=== PATIENT | male | born 1940 | race Two or more races ===

== ENCOUNTER 2017-04-21 06:28 | Day surgery (SDC) | payer MEDICARE ==
--- NOTE | 2017-04-17 15:32 | Pre-Procedure Note/Attestation ---
Pre-Procedure Note/Attestation Complete Prior to Procedure Planned Procedure: right Procedure Narrative: 1. CATARACT EXTRACTION WITH PHACO AND PC IOL IMPLANTATION, RIGHT EYE. 2.LIMBAL RELAXING INCISION,RIGHT EYE. 3.MALYUGIN RING INSERTION, RIGHT EYE FOR FLOPPY IRIS SYNDROME. 4.COMPLEX CATARACT , RIGHT EYE Indications for Procedure Pre-Operative Diagnosis: 1. CATARACT ,RIGHT EYE. 2.ASTIGMATISM, RIGHT EYE. 3. FLOPPY IRIS SYNDROME,RIGHT EYE 4. COMPLEX CATARACT , RIGHT EYE. Attestation I attest that I discussed the nature of the procedure; its benefits; risks and complications; and alternatives (and the risks and benefits of such alternatives ), prior to the procedure, with the patient (or the patient's legal sales service representative). I attest that, if there was a reasonable possibility of needing a blood transfusion, the patient (or the patient's legal sales service representative) was given the [facility] standardized written summary, pursuant to the [place] Blood Safety Act ([place] Health and Safety Code # 1645, as amended). I attest that I re-evaluated the patient just prior to the surgery and that there has been no change in the patient's H&P, except as documented below: DONNIE JACKSON Apr 17, 2017 15:32
[~2017-04-21] VITALS: Ht 175.3 cm; Wt 77.6 kg
[2017-04-21] VITALS (9 sets, daily range): BP systolic 110–135; BP diastolic 58–74
[~2017-04-21 06:28] MED LIST: acetaZOLAMIDE 125mg tab ORAL ONE
[2017-04-21] MEDS ORDERED: Ketorolac Tromethamine Opth Soln ONE (06:42)
[2017-04-21] MEDS ORDERED: Tropicamide 1% Opth Soln ONE (06:42)
[2017-04-21] MEDS ORDERED: Akten 3.5% 1ml Btl ONE (06:42)
[2017-04-21] MEDS ORDERED: Phenylephrine 10% Opth Soln 5ml ONE (06:42)
[2017-04-21] MEDS ORDERED: Vigamox Opth Soln ONE (06:42)
[2017-04-21] MEDS: Phenylephrine 10% Opth Soln 5ml RIGHT EYE SCH ×3 (06:55→07:08)
[2017-04-21] MEDS: Ketorolac Tromethamine Opth Soln RIGHT EYE SCH ×3 (06:56→07:08)
[2017-04-21] MEDS: Akten 3.5% 1ml Btl RIGHT EYE SCH ×3 (06:56→07:08)
[2017-04-21] MEDS: Vigamox Opth Soln RIGHT EYE SCH ×3 (06:56→07:08)
[2017-04-21] MEDS: Tropicamide 1% Opth Soln RIGHT EYE SCH ×3 (06:56→07:08)
[2017-04-21] MEDS ORDERED: PLAVIX75 MG ORAL (07:07)
[2017-04-21] MEDS ORDERED: SOTALOL80 M1 ORAL (07:07)
[2017-04-21] MEDS ORDERED: LEVOTHYROXINE50 MCG ORAL (07:07)
[2017-04-21] MEDS ORDERED: ISOSORBIDE MON120 M1 PO (07:07)
[2017-04-21] MEDS ORDERED: CLOPIDOGREL75 MG ORAL (07:07)
[2017-04-21] MEDS ORDERED: METOPROLOL SUCC25 MG ORAL (07:07)
[2017-04-21] MEDS ORDERED: Sterile Water Irrig 1000ml IRRIG ONE (08:00)
[2017-04-21] MEDS ORDERED: LR 1000ml ONE (08:00)
[2017-04-21] MEDS ORDERED: Midazolam 2mg/2ml Inj ONE (08:00)
[2017-04-21] MEDS ORDERED: NS Irrig 1000ml ONE (08:00)
[2017-04-21] MEDS ORDERED: Propofol 200mg/20ml IV ONE (08:00)
[2017-04-21] MEDS ORDERED: fentaNYL 100 mcg/2 mL IV ONE (08:00)
[2017-04-21] MEDS ORDERED: Dexamethasone 4mg/ml vial ONE (08:07)
[2017-04-21] MEDS ORDERED: Povidone-Iodine 5% opth solution ONE (08:07)
[2017-04-21] MEDS ORDERED: BSS 500ml btl ONE (08:07)
[2017-04-21] MEDS ORDERED: Lidocaine 1% MPF 10mg/ml 5ml ONE (08:07)
[2017-04-21] MEDS ORDERED: BSS 15ml BTL ONE (08:08)
[2017-04-21] MEDS ORDERED: Sodium Hyaluronate 10 mg/ml 0.85ml ONE ×2 (08:08→09:03)
[2017-04-21] MEDS ORDERED: EPINEPHrine 1mg/1ml Amp ONE (08:08)
[2017-04-21] MEDS ORDERED: LR 1000ml 1,000 ML IVLG SCH (08:39)
--- NOTE | 2017-04-21 08:39 | Anethesia Preoperative Eval ---
Anesthesia Pre-op PMH/ROS General Date of Evaluation: Apr 21, 2017 Time of Evaluation: 08:12 Anesthesiologist: Joe ASA Score: ASA 3 Mallampati Score Class I : Soft palate, uvula, fauces, pillars visible Class II: Soft palate, uvula, fauces visible Class III: Soft palate, base of uvula visible Class IV: Only hard plate visible Mallampati Classification: Class II Surgeon: Dona Diagnosis: L eye cataract Surgical Procedure: L eye cataract extraction Anesthesia History: none Social History: smoking - h/o Family History: no anesthesia problems Allergies: Coded Allergies: No Known Allergies (Unverified , 04/17/17) Medications: see eMAR Past Medical History Cardiovascular: Reports: HTN, CAD - s/p CABG no recent CP, Denies: [place], valve dz, arrhythmia, other Pulmonary: Denies: asthma, COPD, AMINATA, other Gastrointestinal/Genitourinary: Reports: GERD - mild, Denies: CRI, ESRD, other Neurologic/Psychiatric: Denies: dementia, CVA, depression/anxiety, TIA, other Endocrine: Denies: DM, hypothyroidism, steroids, other HEENT: Reports: cataract (L), cataract (R), Denies: glaucoma, [place] (L), [place] (R), other Hematology/Immune: Denies: anemia, DVT, bleeding disorder, other Musculoskeletal/Integumentary: Denies: OA, RA, DJD, DDD, edema, other PMH Narrative: as above PSxH Narrative: CABG Anesthesia Pre-op Phys. Exam Physician Exam Last Vital Signs Date Time Temp Pulse Resp B/P (MAP) Pulse Ox O2 Delivery O2 Flow Rate FiO2 04/21/17 06:58 97.4 54 18 128/65 96 Room Air Constitutional: NAD Neurologic: CN 2-12 intact Cardiovascular: RRR, no M/R/G Respiratory: CTA Gastrointestinal: S/NT/ND Airway Exam Mallampati Score: Class II MO: limited Neck: stiff ROM: limited Teeth: missing Dentures: upper, lower Anesthesia Pre-op A/P Labs see chart Studies Pre-op Studies: EKG - SR Risk Assessment & Plan Assessment: ASA 3 Plan: MAC Status Change Before Surgery: No Pre-Antibiotics Drug: none СЕРГЕЙ GROSS M.D. Apr 21, 2017 08:39
[2017-04-21] MEDS ORDERED: fentaNYL 100 mcg/2 mL IV PRN (08:45)
[2017-04-21] MEDS ORDERED: DiphenhydrAMINE 50mg/ml Inj IVP PRN (08:45)
--- NOTE | 2017-04-21 09:07 | Discharge Summary ---
Discharge Summary Discharge Summary Discharge Summary DATE OF ADMISSION: 04/21/2017 DATE OF DISCHARGE: 04/21/2017 REASON FOR HOSPITALIZATION:1- cataract complex, right eye 2- Floppy iris syndrome, right eye SURGERY PERFORMED: 1- Cataract extraction with phaco and PC IOL implantation, right eye CONDITION IN THE HOSPITAL:The patient tolerated the surgery without complications. DISCHARGE CONDITION: The patient was stable at discharge. DISCHARGE MEDICATIONS: 1. Vigamox eye drops one drop q.i.d, right eye 2. Prednisolone one drop q.i.d, right eye 3. Acular, one drop q4h, right eye POSTOPERATIVE ORDERS: The patient has to rest at home. No bending, No lifting, No watching Television tonight. POSTOPERATIVE FOLLOW UP: The patient will be followed in my office tomorrow morning at 7 o'clock. DONNIE JACKSON Apr 21, 2017 09:07
--- NOTE | 2017-04-21 09:11 | Brief Operative Note ---
Immediate Post Operative Note Operative Note Chief Complaint: Blurry vision, difficulty driving and readin, right eye Pre-op Diagnosis: 1. CATARACT ,RIGHT EYE. 2.ASTIGMATISM, RIGHT EYE. 3. FLOPPY IRIS SYNDROME,RIGHT EYE 4. COMPLEX CATARACT , RIGHT EYE. Post-op Diagnosis: 1- Cataract extraction with phaco and PC IOL implantation, right eye 2- Malyugin ring insertion for treatment floppy iris syndrome, right eye 3- Complex cataract, right eye Surgeon: Donnie Carcamo MD. Mule Tender: None Additional Surgeons: None Anesthesiologist: Dr. Diaz Anesthesia: MAC Specimen: none Complications: none Condition: stable Fluids: 500 ml Estimated Blood Loss: none Drains: none Implant(s) used?: Yes - Monofocal PC iOL implanted in the right eye without complication DONNIE CARCAMO Apr 21, 2017 09:11
--- NOTE | 2017-04-21 09:40 | Immediate Post-Op Evaluation ---
Immediate Post-Op Evalulation Immediate Post-Op Evalulation Procedure: R eye cataract extraction with IOL Date of Evaluation: Apr 21, 2017 Time of Evaluation: 08:10 IV Fluids: 400 Blood Products: none Estimated Blood Loss: none Urinary Output: none Blood Pressure Systolic: 128 Blood Pressure Diastolic: 73 Pulse Rate: 58 Respiratory Rate: 20 O2 Sat by Pulse Oximetry: 99 Temperature (Fahrenheit): 97.5 Pain Score (1-10): 2 Nausea: No Vomiting: No Complications none Patient Status: awake, patent, none Hydration Status: adequate СЕРГЕЙ GROSS M.D. Apr 21, 2017 09:40
--- NOTE | 2017-04-21 11:21 | 48 Hour Post Anesthesia Eval ---
Post Anesthesia Evaluation Procedure: R eye cataract extraction with IOL Date of Evaluation: Apr 21, 2017 Time of Evaluation: 11:20 Blood Pressure Systolic: 132 0: 58 Pulse Rate: 72 Respiratory Rate: 18 Temperature (Fahrenheit): 97.6 O2 Sat by Pulse Oximetry: 98 Airway: patent Nausea: No Vomiting: No Pain Intensity: 1 Hydration Status: adequate Cardiopulmonary Status: stable Mental Status/LOC: patient returned to baseline Follow-up Care/Observations: n/a Post-Anesthesia Complications: none Follow-up care needed: ready to discharge СЕРГЕЙ GROSS M.D. Apr 21, 2017 11:21
--- NOTE | 2017-04-21 22:15 | Operative Note - Dictated ---
DATE OF OPERATION: 04/21/2017 FACILITY: [facility]. SURGEON: Bartolome Carcamo M.D. PROPELLANT ASSEMBLER: None. ANESTHESIOLOGIST: Leeroy Diaz M.D. ANESTHESIA: Monitored anesthesia care (MAC). PREOPERATIVE DIAGNOSES: 1. Cataract, right eye. 2. Floppy iris syndrome. 3. Complex cataract. POSTOPERATIVE DIAGNOSES: 1. Cataract, right eye. 2. Floppy iris syndrome. 3. Complex cataract. SURGERY PERFORMED: 1. Cataract extraction with phacoemulsification and posterior chamber intraocular lens implantation in the right eye. 2. Insertion of Malyugin ring to treat floppy iris syndrome. 3. Complex cataract treatment. INDICATIONS FOR SURGERY: The patient is a 77-year-old gentleman with history of hypertension, hyperlipidemia, osteoarthritis, chest pain, fatty liver, dyslipidemia, carotid artery stenosis, heart murmur, vitamin D deficiency, lower extremity pain, and TIA. He is taking medications including metoprolol, atorvastatin, triamcinolone, tamsulosin hydrochloride 0.5 mg oral capsule, sotalol 80 mg oral, potassium chloride, isosorbide, pantoprazole solution oral, vitamin D 2000 units, cyanocobalamin, and fish oil. He is complaining of blurred vision in the right eye. On examination of the right eye, the cornea is clear. Anterior chamber is clear and quiet, appeared shallow. Pupillary reflex is normal. There is RAPD. There is 4+ nuclear sclerosis and 2+ cortical cataract in the right eye. On examination of the macula, macula, optic disc, and periphery retina are within normal limits. To improve his vision in the right eye, the cataract has to be removed and posterior chamber intraocular lens has to be implanted. INFORMED CONSENT: The nature of the surgery, risks, benefits, alternatives, and potential complications were all explained in detail to the patient in his language, Farsi. The potential complications including, but not limited to infection, bleeding, posterior capsular rupture, lens subluxation, flat anterior chamber, iris prolapse, uveitis, corneal edema, macular edema, endophthalmitis, retinal detachment, loss of vision, and even loss of the eye were all explained in detail to the patient. The patient voiced understanding and accepted all the complications. The alternatives including accommodating lenses, multifocal lenses, toric lens, and limbal relaxing incision for treatment of astigmatism were all explained to the patient, who voiced understanding. The patient decided to have cataract surgery with limbal relaxing incision (LRI) for treatment of astigmatism. Then, he signed the consent form, which is in the chart. DESCRIPTION OF SURGERY AND FINDINGS: Following that, the patient was taken to the operating room in a stable condition. Lidocaine gel Akten 3.5% were applied to the conjunctiva of the right eye. IV sedation was given by the anesthesiologist, Dr. Diaz. After adequate anesthesia and sedation had been achieved, the right eye was prepped and draped in a sterile fashion for intraocular surgery. Before the patient was taken to the operation room, the cornea was marked at 180 and 90 meridian. In the operation room, using a corneal marker and marking pen, the steep meridian of the cornea was marked. Following that, using a cipriano knife with 600 blade, 2 parallel incisions were placed on the steep meridian of the cornea. Following that, using a Super Sharp knife, a clear corneal side port was created. A 1% lidocaine without preservative (MPF) was injected into the anterior chamber. Following that, viscoelastic agent Healon was injected into the anterior chamber. Following that, using a 2.8 mm keratome, clear corneal temporal keratotomy was performed. Viscoelastic agent was injected into the anterior chamber again. Following that, a Malyugin ring was inserted into the anterior chamber. The coils of the Malyugin ring were engaged with the sphincter of the pupil. A cipriano shaped space was created for safe phacoemulsification. Following that, anterior capsulotomy was performed in the fashion of capsulorrhexis beautifully. Following that, the viscoelastic agent was removed from the anterior chamber. Following that, with balanced salt solution, hydrodissection and hydrodelineation were performed and the nucleus was freed. Following that, clear fresh new viscoelastic agent Healon was injected into the anterior chamber to protect the endothelium of the cornea. Following that, using phacoemulsification machine in the fashion of horizontal chop, the nucleus was removed in toto. Following that, using irrigation aspiration unit, the cortical material was removed from the capsular bag and the capsular bag was polished. Following that, the capsular bag was filled with viscoelastic agent Healon. Following that, a +16.5 diopter, [id number] foldable PCIOL with serial number [id number] was inserted into the capsular bag. Using a Sinskey hook, the lens was manipulated within the proper position. Following that, the viscoelastic agent was removed from the anterior posterior part of the lens. Following that, the anterior chamber was filled with balanced salt solution and the wound was hydrated with balanced salt solution. The wound was checked for leakage. There was no leakage. Vigamox eye drops were applied to the conjunctiva of the right eye. The patient tolerated the surgery without complications. At the end of the surgery, the eye was patched with a clear sterile fenestrated shield. Following that, the patient was transferred to the recovery room. In the recovery room, 125 mg Diamox was given by mouth stat. Postoperative orders and directions were given to the patient. The patient will be discharged home upon stabilization. The patient will be followed in my office tomorrow morning at 7 o'clock. Bartolome Carcamo M.D. DR: Yesica JOB#: [id number] CC:
== END 2017-04-21 10:15 | disposition home or self-care (01) ==
LOC: SUR 06:28
DX: H26.9 Unspecified cataract (principal); H21.81 Floppy iris syndrome; I10 Essential (primary) hypertension; E78.5 Hyperlipidemia, unspecified; M19.90 Unspecified osteoarthritis, unspecified site; H52.201 Unspecified astigmatism, right eye; Z87.891 Personal history of nicotine dependence; I25.118 Atherosclerotic heart disease of native coronary artery with other forms of angina pectoris; K21.9 Gastro-esophageal reflux disease without esophagitis; Z95.1 Presence of aortocoronary bypass graft; Z86.73 Personal history of transient ischemic attack (TIA), and cerebral infarction without residual deficits
CPT/HCPCS: 66982; J0171; J1100; J2250; J2704; J3010; J7120; V2632; 94003; 94150

== ENCOUNTER 2017-06-23 08:14 | Day surgery (SDC) | payer MEDICARE ==
--- NOTE | 2017-06-18 15:03 | Pre-Procedure Note/Attestation ---
Pre-Procedure Note/Attestation Complete Prior to Procedure Planned Procedure: left Procedure Narrative: 1. CATARACT EXTRACTION WITH PHACO AND PC IOL IMPLANTATION, LEFT EYE. 2.LIMBAL RELAXING INCISION,LEFT EYE. 3.MALYUGIN RING INSERTION, LEFT EYE FOR FLOPPY IRIS SYNDROME. 4.COMPLEX CATARACT , LEFT EYE Indications for Procedure Pre-Operative Diagnosis: 1. CATARACT ,LEFT EYE. 2.ASTIGMATISM, LEFT EYE. 3. FLOPPY IRIS SYNDROME, LEFT EYE 4. COMPLEX CATARACT , LEFT EYE. Attestation I attest that I discussed the nature of the procedure; its benefits; risks and complications; and alternatives (and the risks and benefits of such alternatives ), prior to the procedure, with the patient (or the patient's legal artist representative). I attest that, if there was a reasonable possibility of needing a blood transfusion, the patient (or the patient's legal artist representative) was given the [facility] standardized written summary, pursuant to the [place] Blood Safety Act ([place] Health and Safety Code # 1645, as amended). I attest that I re-evaluated the patient just prior to the surgery and that there has been no change in the patient's H&P, except as documented below: DONNIE JACKSON Jun 18, 2017 15:03
[~2017-06-23] VITALS: Ht 175.3 cm; Wt 78.0 kg
--- NOTE | 2017-06-23 07:09 | Anethesia Preoperative Eval ---
Anesthesia Pre-op PMH/ROS General Date of Evaluation: Jun 23, 2017 Anesthesiologist: Donn ASA Score: ASA 3 Mallampati Score Class I : Soft palate, uvula, fauces, pillars visible Class II: Soft palate, uvula, fauces visible Class III: Soft palate, base of uvula visible Class IV: Only hard plate visible Mallampati Classification: Class II Surgeon: Dona Diagnosis: Left cataract Surgical Procedure: Left cataract extraction with IOL Anesthesia History: none Family History: no anesthesia problems Allergies: Coded Allergies: No Known Allergies (Unverified , 04/17/17) Medications: see eMAR Past Medical History Cardiovascular: Reports: HTN, CAD, other - HLD, Denies: [place], valve dz, arrhythmia Pulmonary: Denies: asthma, COPD, AMINATA, other Gastrointestinal/Genitourinary: Denies: GERD, CRI, ESRD, other Neurologic/Psychiatric: Denies: dementia, CVA, depression/anxiety, TIA, other Endocrine: Reports: hypothyroidism, Denies: DM, steroids, other HEENT: Reports: cataract (L), Denies: cataract (R), glaucoma, [place] (L), [place] (R), other Hematology/Immune: Reports: anemia - chronic, Denies: DVT, bleeding disorder, other Musculoskeletal/Integumentary: Denies: OA, RA, DJD, DDD, edema, other PSxH Narrative: right cataract, CABG Anesthesia Pre-op Phys. Exam Physician Exam see chart Constitutional: NAD Cardiovascular: RRR Respiratory: CTA Airway Exam Mallampati Score: Class II MO: full ROM: full Dentures: upper, lower Anesthesia Pre-op A/P Labs see chart Studies Pre-op Studies: EKG - sr Risk Assessment & Plan Assessment: ASA III Plan: MAC Status Change Before Surgery: No Pre-Antibiotics Drug: N/A WYATT NEAL M.D. Jun 23, 2017 07:09
[~2017-06-23 08:14] MED LIST changes: +CLOPIDOGREL75 MG ORAL; +ISOSORBIDE MON120 M1 PO; +LEVOTHYROXINE50 MCG ORAL; +METOPROLOL SUCC25 MG ORAL; +PLAVIX75 MG ORAL; +SOTALOL80 M1 ORAL
[2017-06-23] MEDS ORDERED: Akten 3.5% 1ml Btl ONE (08:33)
[2017-06-23] MEDS ORDERED: Ketorolac Tromethamine Opth 5ml Soln ONE (08:33)
[2017-06-23] MEDS ORDERED: Tropicamide 1% Opth 15ml Soln ONE (08:33)
[2017-06-23] MEDS ORDERED: Phenylephrine 10% Opth Soln 5ml ONE (08:33)
[2017-06-23] MEDS ORDERED: Vigamox Opth Soln 3ml ONE (08:33)
[2017-06-23] MEDS: Ketorolac Tromethamine Opth 5ml Soln LEFT EYE SCH ×3 (08:57→09:22)
[2017-06-23] MEDS: Akten 3.5% 1ml Btl LEFT EYE SCH ×3 (08:57→09:21)
[2017-06-23] MEDS: Tropicamide 1% Opth 15ml Soln LEFT EYE SCH ×3 (08:58→09:21)
[2017-06-23] MEDS: Phenylephrine 10% Opth Soln 5ml LEFT EYE SCH ×3 (08:58→09:21)
[2017-06-23] MEDS: Vigamox Opth Soln 3ml LEFT EYE SCH ×3 (08:58→09:22)
[2017-06-23 09:11] VITALS: BP 129/69
[2017-06-23] MEDS ORDERED: NS Irrig 1000ml ONE (09:30)
[2017-06-23] MEDS ORDERED: Sterile Water Irrig 1000ml IRRIG ONE (09:30)
[2017-06-23] MEDS ORDERED: LR 1000ml ONE (09:30)
[2017-06-23] MEDS ORDERED: Lidocaine 1% MPF 10mg/ml 5ml ONE ×2 (09:30→10:39)
[2017-06-23] MEDS ORDERED: Sodium Chloride 10ml vial INJ ONE (09:30)
[2017-06-23] MEDS ORDERED: fentaNYL 100 mcg/2 mL IV ONE (09:30)
[2017-06-23] MEDS ORDERED: DiphenhydrAMINE 50mg/ml Inj ONE (09:30)
[2017-06-23] MEDS ORDERED: LR 1000ml 1,000 ML IVLG SCH (09:33)
--- NOTE | 2017-06-23 09:33 | Immediate Post-Op Evaluation ---
Immediate Post-Op Evalulation Immediate Post-Op Evalulation Procedure: Left cataract extraction with IOL Date of Evaluation: Jun 23, 2017 Time of Evaluation: 10:27 IV Fluids: 300 Blood Products: 0 Estimated Blood Loss: 0 Urinary Output: 0 Blood Pressure Systolic: 148 Blood Pressure Diastolic: 79 Pulse Rate: 61 Respiratory Rate: 16 O2 Sat by Pulse Oximetry: 100 Temperature (Fahrenheit): 98.2 Pain Score (1-10): 0 Nausea: No Vomiting: No Complications 0 Patient Status: awake, reacts, patent, none Hydration Status: adequate Drug: N/A WYATT NEAL M.D. Jun 23, 2017 09:33
--- NOTE | 2017-06-23 09:33 | 48 Hour Post Anesthesia Eval ---
Post Anesthesia Evaluation Procedure: Left cataract extraction with IOL Date of Evaluation: Jun 23, 2017 Airway: patent Nausea: No Vomiting: No Pain Intensity: 0 Hydration Status: adequate Cardiopulmonary Status: at baseline Mental Status/LOC: patient returned to baseline Post-Anesthesia Complications: 0 Follow-up care needed: ready to discharge WYATT NEAL M.D. Jun 23, 2017 09:33
[2017-06-23 09:42] LABS: EOSINOPHILS % (AUTO) 1.8 % (0.0-3.0); LYMPHOCYTES % (AUTO) 24.3 % (20.0-45.0); MEAN CORPUSCULAR HEMOGLOBIN 30.1 PG (27.0-31.0); MEAN CORPUSCULAR HGB CONC 32.6 G/DL (32.0-36.0); MEAN CORPUSCULAR VOLUME 92 FL (80-99); MEAN PLATELET VOLUME 6.7 FL (6.5-10.1); MONOCYTES % (AUTO) 7.3 % (1.0-10.0); NEUTROPHILS % (AUTO) 65.6 % (45.0-75.0); PLATELET COUNT 131 K/UL (150-450); RED BLOOD COUNT 4.84 M/UL (4.70-6.10); RED CELL DISTRIBUTION WIDTH 11.4 % (11.6-14.8); WHITE BLOOD COUNT 4.8 K/UL (4.8-10.8)
[2017-06-23 09:43] LABS: ANION GAP 4 mmol/L (5-15); CARBON DIOXIDE 30 MMOL/L (21-32); CHLORIDE 106 MMOL/L (98-107); CREATININE 1.1 MG/DL (0.55-1.30); POTASSIUM 4.4 MMOL/L (3.5-5.1); SODIUM 140 MMOL/L (136-145)
[2017-06-23] MEDS ORDERED: DiphenhydrAMINE 50mg/ml Inj IVP PRN (09:45)
--- NOTE | 2017-06-23 10:27 | Discharge Summary ---
Discharge Summary Discharge Summary Discharge Summary DATE OF ADMISSION: 06/23/2017 DATE OF DISCHARGE: 06/23/2017 REASON FOR HOSPITALIZATION: 1- Cataract, left eye 2- Floppy iris syndrome 3- Complex cataract, left eye SURGERY PERFORMED:1- Cataract extraction, left eye 2- Malyugin ring insertion, left eye 3- Complex cataract removal, left eye CONDITION IN THE HOSPITAL:The patient tolerated the surgery without complications. DISCHARGE CONDITION: The patient was stable at discharge. DISCHARGE MEDICATIONS: 1. Vigamox eye drops one drop q.i.d, OS 2. Prednisolone one drop q.i.d, OS 3. Acular one drop qid, left eye POSTOPERATIVE ORDERS: The patient has to rest at home. No bending, No lifting, No watching Television tonight. POSTOPERATIVE FOLLOW UP: The patient will be followed in my office tomorrow morning at 7 o'clock. DONNIE JACKSON Jun 23, 2017 10:27
--- NOTE | 2017-06-23 10:37 | Brief Operative Note ---
Immediate Post Operative Note Operative Note Pre-op Diagnosis: 1. CATARACT ,LEFT EYE. 2.ASTIGMATISM, LEFT EYE. 3. FLOPPY IRIS SYNDROME, LEFT EYE 4. COMPLEX CATARACT , LEFT EYE. Procedure: 1- Cataract extraction with phaco and PC IOl implantation. left eye 2- Malyugin ring insertion, for the floppy iris treatment, left eye 3- Complex cataract removal, left eye Post-op Diagnosis: same as pre-op Surgeon: Donnie Carcamo MD. Supervisor Drying And Softening: NOne Additional Surgeons: None Anesthesiologist: DR. Pop Anesthesia: MAC Specimen: none Complications: none Condition: stable Fluids: 500ml Estimated Blood Loss: none Drains: none Implant(s) used?: Yes - Monofocal PC IOl implanted in the left eye without complication DONNIE CARCAMO Jun 23, 2017 10:37
[2017-06-23] MEDS ORDERED: Povidone-Iodine 5% opth solution ONE (10:38)
[2017-06-23] MEDS ORDERED: BSS 15ml BTL ONE (10:38)
[2017-06-23] MEDS ORDERED: EPINEPHrine 1mg/1ml Amp ONE (10:38)
[2017-06-23] MEDS ORDERED: BSS 500ml btl ONE (10:38)
[2017-06-23] MEDS ORDERED: Sodium Hyaluronate 10 mg/ml 0.85ml ONE (10:39)
[2017-06-23] MEDS ORDERED: Dexamethasone 4mg/ml vial ONE (10:39)
[2017-06-23 10:50] VITALS: BP 134/74
[2017-06-23 11:20] VITALS: BP 131/75
--- NOTE | 2017-06-23 15:30 | Pre-op HX & Phy Repo 2 SIG ---
DATE OF ADMISSION: 06/23/2017 PRESURGICAL INTERNAL MEDICINE HISTORY AND PHYSICAL REASON FOR EVALUATION: I was asked by Dr. Bartolome Carcamo to see this 77-year-old male, who was going for elective surgery on the left eye. The patient has a cataract left eye. Please see full description per Dr. Bartolome Carcamo. The patient was evaluated. Chart was reviewed. PAST MEDICAL HISTORY/REVIEW OF SYSTEMS: Remarkable for coronary heart disease and coronary artery bypass surgery, hypothyroidism. No history of heart attack. No stroke or seizures. Denies history of GI bleeding. No history of diabetes mellitus. No renal failure. No respiratory problem. The patient had anemia and B12 deficiency 20 years ago that had been corrected. PAST SURGICAL HISTORY: Coronary artery bypass surgery in 2010 and cataract, right eye three months ago. FAMILY HISTORY: Father from complication of flu and mother from Alzheimer disease. ALLERGIES: Not known. MEDICATIONS: Present medications include sotalol, levothyroxine, vitamin D3, calcium supplement, and Isordil. HABITS: The patient smoked for approximately four years 40 years ago. Denied alcohol or street drug use. PHYSICAL EXAMINATION: GENERAL: Alert, well-developed, well-nourished male, in his 70s, in no acute distress. VITAL SIGNS: Blood pressure 129/69, temperature 97.7, pulse 51 and regular, respirations 20, and O2 saturation 97% on room air. The patient is alert. SKIN: Clear. Bug bite on the left lower extremity. LYMPHATICS: Lymph nodes not enlarged. HEENT: Head, normocephalic and atraumatic. Ears, clear. Eye, full description per Dr. Bartolome Carcamo. Mouth, clear and moist. Dentures, upper and lower. NECK: Supple. No jugular venous distention. Carotid artery +2. Trachea midline. CHEST: No deformity or asymmetry. LUNGS: Clear. No rales or rhonchi. HEART: Sinus bradycardia. No murmur. No S3, S4. ABDOMEN: Soft and benign. No rebound. Liver and spleen are not enlarged. Bowel sounds plus. EXTREMITIES: No edema. No varicose vein. No calf tenderness. GENITOURINARY: Normal for gender. No dysuria. No CVA tenderness. NERVOUS SYSTEM: No nystagmus. No tremor. No asymmetry. DIAGNOSTIC AND LABORATORY DATA: ECG, sinus bradycardia. The patient did not eat or drink from last night 10 p.m. Laboratory work pending. IMPRESSION: 1. Cataract, left eye. 2. Coronary heart disease, post coronary artery bypass surgery, three stents. 3. Hypothyroidism. 4. Sinus bradycardia. PLAN: Cataract extraction, left eye, with intraocular lens implant per Dr. Bartolome Carcamo. CONCLUSION: The patient's vital signs stable. EKG, sinus bradycardia. The patient did not eat or drink from yesterday 8 p.m. The patient's condition optimized for surgery. Thank you very much, Dr. Carcamo, for the privilege to participate in the presurgical care of this interesting patient. Grover Bartlett M.D. DR: ETTA JOB#: [id number] CC:
--- NOTE | 2017-06-23 18:15 | Operative Note - Dictated ---
DATE OF OPERATION: 06/23/2017 FACILITY: [facility]. SURGEON: Bartolome Carcamo M.D. CHIP SILO TENDER: None. ANESTHESIOLOGIST: Dr. Pop. ANESTHESIA: Monitored anesthesia care (MAC). PREOPERATIVE DIAGNOSES: 1. Cataract, left eye. 2. Floppy iris syndrome, left eye. 3. Complex cataract, left eye. 4. Astigmatism, left eye. POSTOPERATIVE DIAGNOSES: 1. Cataract, left eye. 2. Floppy iris syndrome, left eye. 3. Complex cataract, left eye. 4. Astigmatism, left eye. SURGERY PERFORMED: 1. Cataract extraction with phacoemulsification and posterior chamber intraocular lens implantation in the left eye. 2. Insertion of Malyugin ring to treat floppy iris syndrome in the left eye. 3. Limbal relaxing incision (LRI) in the left eye. 4. Complete cataract removal, left eye. INDICATION FOR SURGERY: The patient is a 77-year-old gentleman with history of hypertension, hyperlipidemia, osteoarthritis, chest pain, fatty liver, dyslipidemia, carotid artery stenosis, heart murmur, vitamin D deficiency, lower extremity pain, and TIA. He is taking medications including metoprolol, atorvastatin, triamcinolone, tamsulosin hydrochloride 0.5 mg oral capsule, sotalol 80 mg oral, potassium chloride, isosorbide, pantoprazole solution oral, vitamin D 2000 units, cyanocobalamin, and fish oil. He has benign prostatic hypertrophy and he is taking Flomax. He has had cataract surgery in the right eye one month ago and he is happy with the result. Now, he is complaining of blurred vision in the left eye. On examination of the left eye, the cornea is clear. Anterior chamber is clean and quiet. The anterior chamber is really shallow. Pupillary reflex is normal. No RAPD. There is 4+ nuclear sclerosis and 2+ cortical cataract in the left eye. On examination of the macula, optic disc and periphery retina are within normal limits. To improve his vision in the left eye, the cataract has to be removed and posterior chamber intraocular lens has to be implanted. INFORMED CONSENT: The nature of the surgery, risks, benefits, alternatives, and potential complications were all explained in detail to the patient in his language, Farsi. The potential complications including, but not limited to, infection, bleeding, posterior capsular rupture, lens subluxation, flat anterior chamber, iris prolapse, uveitis, corneal edema, macular edema, endophthalmitis, retinal detachment, loss of vision, and even loss of the eye were all explained in detail to the patient. The patient voiced understanding and accepted all the complications. The alternatives including accommodating lens, multifocal lens, toric lens, and conventional cataract surgery with limbal relaxing incision for astigmatism were all explained in detail to the patient, who voiced understanding. The patient decided to have cataract surgery with limbal relaxing incision (LRI) for treatment of astigmatism. Then, he signed the consent form, which is in the chart. DESCRIPTION OF SURGERY AND FINDINGS: Following that, the patient was taken to the operation room in stable condition. Lidocaine gel Akten 3.5% were applied to the conjunctiva of the left eye. Anesthesia was given by the anesthesiologist, Dr. Pop. After adequate anesthesia and sedation has been achieved, the left eye was prepped and draped in usual sterile fashion for intraocular surgery. Before the patient was taken to the operation room, the cornea was marked at 180 and 90 meridian. In the operation room, using a corneal marker and marking pen, the steep meridian of the cornea was marked. Following that, using a cipriano knife with 600 blade, two parallel incisions were placed on the steep meridian of the cornea. Following that, using a Super Sharp knife, a clear corneal side port was created. A 1% lidocaine without preservative (MPF) was injected into the anterior chamber. Following that, viscoelastic agent, Healon was injected into the anterior chamber. Following that, using a 2.8 mm keratome, clear corneal temporal keratotomy was performed. Viscoelastic agent was injected into the anterior chamber again. Following that, the Malyugin ring was inserted into the anterior chamber. Then, the coils of the Malyugin ring were engaged with the sphincter of the pupil. A cipriano-shaped space was created for safe phacoemulsification. Following that, anterior capsulotomy was performed. Following that, VisionBlue was injected into the capsular bag to stain the anterior capsule of the lens. Following that, clear, sterile, fresh viscoelastic agent was injected into the anterior chamber. Under the viscoelastic agent, an anterior capsulotomy was performed in the fashion of capsulorrhexis beautifully. Following that, all viscoelastic agent was removed from the anterior chamber. Following that, using balanced salt solution, hydrodissection and hydrodelineation was performed and the nucleus was freed. Following that, clear, fresh, sterile viscoelastic agent Healon was injected into the anterior chamber to protect the endothelium of the cornea. Following that, using the phacoemulsification machine in the fashion of horizontal chop, the nucleus was removed in toto. Following that, using the irrigation and aspiration unit, the cortical material was removed from the capsular bag and the capsular bag was polished. Following that, the capsular bag was filled clear fresh viscoelastic agent, Healon. Following that, +16.5 diopter ZCB00 foldable PCIOL with serial number [id number] was injected into the capsular bag. Using a Sinskey hook, the lens was manipulated within the proper position. Following that, the viscoelastic agent was removed from the anterior posterior part of the lens. Following that, the anterior chamber was filled with balanced salt solution and the wound was hydrated with balanced salt solution. The wound was checked for leakage. There was no leakage. The patient tolerated the surgery without complications. Vigamox eye drops were applied to the conjunctiva of the left eye. At the end of the surgery, the eye was patched with a clear fenestrated shield. Following that, the patient was transferred to the recovery room. In the recovery room, 125 mg Diamox was given by mouth stat. Postoperative orders and directions were given to the patient. The patient will be discharged home upon stabilization. The patient will be followed in my office tomorrow morning at 6:45 a.m. Bartolome Carcamo M.D. DR: ADDIE JOB#: [id number] CC:
== END 2017-06-23 11:20 | disposition home or self-care (01) ==
LOC: SUR 08:14
DX: H25.12 Age-related nuclear cataract, left eye (principal); H25.012 Cortical age-related cataract, left eye; H52.202 Unspecified astigmatism, left eye; H21.81 Floppy iris syndrome; I11.9 Hypertensive heart disease without heart failure; E78.5 Hyperlipidemia, unspecified; M19.90 Unspecified osteoarthritis, unspecified site; R00.1 Bradycardia, unspecified; E03.9 Hypothyroidism, unspecified; Z86.73 Personal history of transient ischemic attack (TIA), and cerebral infarction without residual deficits; Z95.1 Presence of aortocoronary bypass graft; Z87.891 Personal history of nicotine dependence
CPT/HCPCS: 36415; 65772; 66982; 80048; 85025; J0171; J1100; J1200; J3010; J7120; V2632; 94003; 94150